=== PATIENT | male | born 1990 | race African-American/Black ===

== ENCOUNTER 2016-11-20 01:17 | Emergency (ER) | payer OTHER ==
[~2016-11-20 01:17] MED LIST: CELE20TA PO; HYDR25TAB PO; LAMI250T3 PO; MOBI15TA PO; PERC5TAB6 PO; PRIL20CA PO; VALA1TAB PO; VANI1CRE5 TOP
[2016-11-20] MEDS ORDERED: ONDANSETRON 4 MG ORAL DISINTEGRATING TAB (S0181) As Ordered ONE (02:02)
--- NOTE | 2016-11-20 02:23 | EDDOCDS ---
Physician Documentation [facility] Name: Erica Walsh Age: 26 yrs Sex: Male : 1990 Arrival Date: 11/20/2016 Time: 01:17 Bed I2 / M2 Private MD: Disposition: 11/20/16 02:15 Discharged to Home/Self Care. Impression: Vomiting. - Condition is Stable. - Discharge Instructions: Clear Liquid Diet, Nausea and Vomiting. - Prescriptions for ZOFRAN ODT 4 mg Oral - dissolve 1 tablet by ORAL route 4 times per day As needed do not chew, do not swallow whole; 20 tablet. - Medication Reconciliation, Local Pharmacy Hours form. - Follow up: Private Physician; When: Call to arrange an appointment; Reason: Recheck today's complaints, Continuance of care. - Problem is new. - Symptoms have improved. Historical: - Allergies: No known drug Allergies; - Home Meds: 1. valacyclovir 1 gram Oral tab 1 tab 2 times per day - PMHx: back pain; GERD; Hypertension; Herpes; - PSHx: Tonsillectomy; - Social history: Smoking status: Patient uses tobacco products, light tobacco smoker. No barriers to communication noted, The patient speaks fluent [place], Speaks appropriately for age. - Family history: Not pertinent. - : The pt / caregiver states he / she is not on anticoagulants. Home medication list is obtained from the patient. - Exposure Risk Screening:: None identified. Vital Signs: 11/20 01:41 BP 137 / 81; Pulse 81; Resp 18; Temp 98.5(TE); Pulse Ox 98% on R/A; Weight 99.79 kg / kmg1 220 lbs (R); Height 6 ft. 2 in. (187.96 cm) (R); Pain 0/10; 01:41 Body Mass Index 28.25 (99.79 kg, 187.96 cm) kmg1 MDM: 01:44 Ondansetron ODT Oral Disintegrating Tablet 4 mg PO once ordered. mo1 Administered Medications: 02:04 Drug: Ondansetron ODT 4 mg [ondansetron 4 mg disintegrating tablet (1 tabs)] Route: PO; [place] Signatures: Dannielle Gaytan RN RN [facility] Rigoberto Cook PA PA mo1 Romero,Chandler,RN RN jmb JOHND
--- NOTE | 2016-11-20 02:23 | EDDOCDS ---
Nurse's Notes [facility] Name: Erica Walsh Age: 26 yrs Sex: Male : 1990 Arrival Date: 11/20/2016 Time: 01:17 Bed I2 / M2 Private MD: Diagnosis: Vomiting Presentation: 11/20 01:38 Presenting complaint: Patient states: Vomiting since 1999. Suicide/Homicide risk kmg1 assessment- the patient denies having any suicidal and/or homicidal ideations and does not present with any other emotional, behavioral or mental health complaints. Status: Patient is not a mechanical service specialist or dependent. Transition of care: patient was not received from another setting of care. 01:38 Acuity: ROCAEL Level 4 km 01:38 Method Of Arrival: Walkin/Carried/Asstd [facility] [place] 02:21 Adult Sepsis Screening: The patient does not have new or worsening altered mentation. jmb Patient's respiratory rate is less than 22. Systolic blood pressure is greater than 100. Patient has a qSOFA score of 0- Negative Sepsis Screen. Triage Assessment: 01:41 General: Appears ill, Behavior is appropriate for age, cooperative, pleasant. Pain: kmg1 Denies pain. HIV screening NA for this visit Offered previously. GI: Reports nausea, vomiting. Historical: - Allergies: No known drug Allergies; - Home Meds: 1. valacyclovir 1 gram Oral tab 1 tab 2 times per day - PMHx: back pain; GERD; Hypertension; Herpes; - PSHx: Tonsillectomy; - Social history: Smoking status: Patient uses tobacco products, light tobacco smoker. No barriers to communication noted, The patient speaks fluent [place]e, Speaks appropriately for age. - Family history: Not pertinent. - : The pt / caregiver states he / she is not on anticoagulants. Home medication list is obtained from the patient. - Exposure Risk Screening:: None identified. Screenin:04 Screening information is obtained from the patient. Fall risk: No risks identified. jmb Assistance ADL's: requires no assistance with activities of daily living. Abuse/DV Screen: The patient / caregiver reports he/she is: not in a situation that causes fear, pain or injury. Nutritional screening: No deficits noted. home support is adequate. 02:19 Advance Directives: Currently, there is no health care proxy. There is no active DNR jmb order. There is no living will. There is no Power of Oxyacetylene Welder. Assessment: 02:04 General: Appears in no apparent distress, Behavior is appropriate for age. jmb Neurological: Level of Consciousness is awake, alert, obeys commands, Oriented to person, place, time, Speech is normal, Facial symmetry appears normal, Facial symmetry: tongue is midline. Cardiovascular: Capillary refill < 3 seconds Heart tones present Pulses are all present. Rhythm is regular. Respiratory: Airway is patent Respiratory effort is even, unlabored, Respiratory pattern is regular, symmetrical, Breath sounds are clear bilaterally. GI: Abdomen is non- distended Bowel sounds present X 4 quads. Abd is soft X 4 quads Reports nausea, vomiting. Derm: Skin is normal. Musculoskeletal: Range of motion intact in all extremities. 02:19 General: Patient instructed on discharge instructions. Patient asked if there were any jmb questions regarding discharge, patient stated no. Patient signed discharge instructions. Patient discharged in stable condition. . Vital Signs: 01:41 BP 137 / 81; Pulse 81; Resp 18; Temp 98.5(TE); Pulse Ox 98% on R/A; Weight 99.79 kg [facility] (R); Height 6 ft. 2 in. (187.96 cm) (R); Pain 0/10; 01:41 Body Mass Index 28.25 (99.79 kg, 187.96 cm) [facility] Vitals: 01:41 Log In Time: November 20, 2016 at 01:20. [facility] ED Course: 01:19 Patient visited by Zainab Parada Reg. hs2 01:19 Patient moved to Waiting hs2 01:39 Triage Initiated [facility] 01:43 Patient moved to I2 / M2 [facility] 02:02 Rigoberto Cook PA is PHCP. mo1 02:02 Berny Henry DO is Attending Physician. mo1 02:04 The patient / caregiver is instructed regarding the plan of care and ED course. jmb 02:05 Patient visited by Chandler Romero RN. jmb 02:14 Patient visited by Rigoberto Cook PA. mo1 02:19 No IV's were initiated during this patient's visit. No procedures done that require jmb assistance. Administered Medications: 02:04 Drug: Ondansetron ODT 4 mg [ondansetron 4 mg disintegrating tablet (1 tabs)] Route: PO; jmb Order Results: There are currently no results for this order. Outcome: 02:15 Discharge ordered by Provider. mo1 02:19 Discharge Assessment: Patient awake, alert and oriented x 3. No cognitive and/or jmb functional deficits noted. Patient verbalized understanding of disposition instructions. Patient awake and alert. obeys commands, Oriented to person, place and time. Patient verbalized understanding of disposition instructions. Patient has no functional deficits. patient administered narcotics - no. The following High Risk Discharge criteria are identified: None. Discharged to home ambulatory, with friend. Condition: stable. Discharge instructions given to patient, Instructed on discharge instructions, follow up and referral plans. Demonstrated understanding of instructions, Pt was receptive of discharge instructions/ teaching. No special radiology studies were completed. Property sent home with patient. 02:22 Patient left the ED. [place] Signatures: Dannielle Gaytan RN RN kmg1 Rigoberto Cook PA PA mo1 Chandler Romero RN RN jmb Zainab Parada, Reg Reg hs2 MTDD
[2016-11-20] MEDS ORDERED: IBUPROFEN 100 MG/5 ML SUSP UDC As Ordered ONE (02:49)
[2016-11-20] MEDS ORDERED: diphenhydrAMINE 12.5MG/5ML ELIXIR UDC As Ordered ONE (02:49)
--- NOTE | 2016-11-22 03:23 | EDDOCDS ---
Physician Documentation [facility] Name: Erica Walsh Age: 26 yrs Sex: Male : 1990 Arrival Date: 11/20/2016 Time: 01:17 Bed I2 / M2 Private MD: Disposition: 11/20/16 02:15 Discharged to Home/Self Care. Impression: Vomiting. - Condition is Stable. - Discharge Instructions: Clear Liquid Diet, Nausea and Vomiting. - Prescriptions for ZOFRAN ODT 4 mg Oral - dissolve 1 tablet by ORAL route 4 times per day As needed do not chew, do not swallow whole; 20 tablet. - Medication Reconciliation, Local Pharmacy Hours form. - Follow up: Private Physician; When: Call to arrange an appointment; Reason: Recheck today's complaints, Continuance of care. - Problem is new. - Symptoms have improved. Historical: - Allergies: No known drug Allergies; - Home Meds: 1. valacyclovir 1 gram Oral tab 1 tab 2 times per day - PMHx: back pain; GERD; Hypertension; Herpes; - PSHx: Tonsillectomy; - Social history: Smoking status: Patient uses tobacco products, light tobacco smoker. No barriers to communication noted, The patient speaks fluent [place], Speaks appropriately for age. - Family history: Not pertinent. - : The pt / caregiver states he / she is not on anticoagulants. Home medication list is obtained from the patient. - Exposure Risk Screening:: None identified. Vital Signs: 11/20 01:41 BP 137 / 81; Pulse 81; Resp 18; Temp 98.5(TE); Pulse Ox 98% on R/A; Weight 99.79 kg / kmg1 220 lbs (R); Height 6 ft. 2 in. (187.96 cm) (R); Pain 0/10; 01:41 Body Mass Index 28.25 (99.79 kg, 187.96 cm) kmg1 MDM: 01:44 Ondansetron ODT Oral Disintegrating Tablet 4 mg PO once ordered. mo1 02:28 [facility] Payment Agreement was scanned into [employer] and attached to record. lja 02:28 Financial registration complete. lja 04:37 T-Sheet-- Draft Copy was scanned into [employer] and attached to record. hs2 Administered Medications: 02:04 Drug: Ondansetron ODT 4 mg [ondansetron 4 mg disintegrating tablet (1 tabs)] Route: PO; [place] Signatures: Dannielle Gaytan RN RN kmg1 Rigoberto Cook PA PA mo1 Chandler Romero RN RN jmb Arel, Zainab Trevino, Reg Reg hs2 The chart was reviewed and I authenticate all verbal orders and agree with the evaluation and treatment provided.Attachments: 02:28 [facility] Payment Agreement sheela 04:37 T-Sheet-- Draft Copy hs2 Chart Complete MTDD
--- NOTE | 2016-11-22 03:23 | EDDOCDS ---
Physician Documentation [facility] Name: Erica Walsh Age: 26 yrs Sex: Male : 1990 Arrival Date: 11/20/2016 Time: 01:17 Bed I2 / M2 Private MD: Disposition: 11/20/16 02:15 Discharged to Home/Self Care. Impression: Vomiting. - Condition is Stable. - Discharge Instructions: Clear Liquid Diet, Nausea and Vomiting. - Prescriptions for ZOFRAN ODT 4 mg Oral - dissolve 1 tablet by ORAL route 4 times per day As needed do not chew, do not swallow whole; 20 tablet. - Medication Reconciliation, Local Pharmacy Hours form. - Follow up: Private Physician; When: Call to arrange an appointment; Reason: Recheck today's complaints, Continuance of care. - Problem is new. - Symptoms have improved. Historical: - Allergies: No known drug Allergies; - Home Meds: 1. valacyclovir 1 gram Oral tab 1 tab 2 times per day - PMHx: back pain; GERD; Hypertension; Herpes; - PSHx: Tonsillectomy; - Social history: Smoking status: Patient uses tobacco products, light tobacco smoker. No barriers to communication noted, The patient speaks fluent [place], Speaks appropriately for age. - Family history: Not pertinent. - : The pt / caregiver states he / she is not on anticoagulants. Home medication list is obtained from the patient. - Exposure Risk Screening:: None identified. Vital Signs: 11/20 01:41 BP 137 / 81; Pulse 81; Resp 18; Temp 98.5(TE); Pulse Ox 98% on R/A; Weight 99.79 kg / kmg1 220 lbs (R); Height 6 ft. 2 in. (187.96 cm) (R); Pain 0/10; 01:41 Body Mass Index 28.25 (99.79 kg, 187.96 cm) kmg1 MDM: 01:44 Ondansetron ODT Oral Disintegrating Tablet 4 mg PO once ordered. mo1 02:28 [facility] Payment Agreement was scanned into [employer] and attached to record. lja 02:28 Financial registration complete. lja 04:37 T-Sheet-- Draft Copy was scanned into [employer] and attached to record. hs2 Administered Medications: 02:04 Drug: Ondansetron ODT 4 mg [ondansetron 4 mg disintegrating tablet (1 tabs)] Route: PO; [place] Signatures: Dannielle Gaytan RN RN kmg1 Rigoberto Cook PA PA mo1 Chandler Romero RN RN jmb Arel, Zainab Trevino, Reg Reg hs2 The chart was reviewed and I authenticate all verbal orders and agree with the evaluation and treatment provided.Attachments: 02:28 [facility] Payment Agreement sheela 04:37 T-Sheet-- Draft Copy hs2 Chart Complete MTDD
--- NOTE | 2016-11-22 03:23 | EDDOCDS ---
Nurse's Notes [facility] Name: Erica Walsh Age: 26 yrs Sex: Male : 1990 Arrival Date: 11/20/2016 Time: 01:17 Bed I2 / M2 Private MD: Diagnosis: Vomiting Presentation: 11/20 01:38 Presenting complaint: Patient states: Vomiting since 1999. Suicide/Homicide risk kmg1 assessment- the patient denies having any suicidal and/or homicidal ideations and does not present with any other emotional, behavioral or mental health complaints. Status: Patient is not a service vehicle operator or dependent. Transition of care: patient was not received from another setting of care. 01:38 Acuity: ROCAEL Level 4 km 01:38 Method Of Arrival: [place] [facility] Adult Sepsis Screening: The patient does not have new or worsening altered mentation. jmb Patient's respiratory rate is less than 22. Systolic blood pressure is greater than 100. Patient has a qSOFA score of 0- Negative Sepsis Screen. Triage Assessment: 01:41 General: Appears ill, Behavior is appropriate for age, cooperative, pleasant. Pain: kmg1 Denies pain. HIV screening NA for this visit Offered previously. GI: Reports nausea, vomiting. Historical: - Allergies: No known drug Allergies; - Home Meds: 1. valacyclovir 1 gram Oral tab 1 tab 2 times per day - PMHx: back pain; GERD; Hypertension; Herpes; - PSHx: Tonsillectomy; - Social history: Smoking status: Patient uses tobacco products, light tobacco smoker. No barriers to communication noted, The patient speaks fluent [place], Speaks appropriately for age. - Family history: Not pertinent. - : The pt / caregiver states he / she is not on anticoagulants. Home medication list is obtained from the patient. - Exposure Risk Screening:: None identified. Screenin:04 Screening information is obtained from the patient. Fall risk: No risks identified. jmb Assistance ADL's: requires no assistance with activities of daily living. Abuse/DV Screen: The patient / caregiver reports he/she is: not in a situation that causes fear, pain or injury. Nutritional screening: No deficits noted. home support is adequate. 02:19 Advance Directives: Currently, there is no health care proxy. There is no active DNR jmb order. There is no living will. There is no Power of Public Health Representative. Assessment: 02:04 General: Appears in no apparent distress, Behavior is appropriate for age. jmb Neurological: Level of Consciousness is awake, alert, obeys commands, Oriented to person, place, time, Speech is normal, Facial symmetry appears normal, Facial symmetry: tongue is midline. Cardiovascular: Capillary refill < 3 seconds Heart tones present Pulses are all present. Rhythm is regular. Respiratory: Airway is patent Respiratory effort is even, unlabored, Respiratory pattern is regular, symmetrical, Breath sounds are clear bilaterally. GI: Abdomen is non- distended Bowel sounds present X 4 quads. Abd is soft X 4 quads Reports nausea, vomiting. Derm: Skin is normal. Musculoskeletal: Range of motion intact in all extremities. 02:19 General: Patient instructed on discharge instructions. Patient asked if there were any jmb questions regarding discharge, patient stated no. Patient signed discharge instructions. Patient discharged in stable condition. . Vital Signs: 01:41 BP 137 / 81; Pulse 81; Resp 18; Temp 98.5(TE); Pulse Ox 98% on R/A; Weight 99.79 kg [facility] (R); Height 6 ft. 2 in. (187.96 cm) (R); Pain 0/10; 01:41 Body Mass Index 28.25 (99.79 kg, 187.96 cm) [facility] Vitals: 01:41 Log In Time: November 20, 2016 at 01:20. [facility] [place] Course: 01:19 Patient visited by Zainab Parada Reg. hs2 01:19 Patient moved to Waiting hs2 01:39 Triage Initiated [facility] 01:43 Patient moved to I2 / M2 [facility] 02:02 Rigoberto Cook PA is PHCP. mo1 02:02 Berny Henry DO is Attending Physician. mo1 02:04 The patient / caregiver is instructed regarding the plan of care and ED course. jmb 02:05 Patient visited by Chandler Romero RN. jmb 02:14 Patient visited by Rigoberto Cook PA. mo1 02:19 No IV's were initiated during this patient's visit. No procedures done that require jmb assistance. 02:28 [facility] [place] Agreement was scanned into [employer] and attached to record. lja 04:37 T-Sheet-- Draft Copy was scanned into [employer] and attached to record. hs2 Administered Medications: 02:04 Drug: Ondansetron ODT 4 mg [ondansetron 4 mg disintegrating tablet (1 tabs)] Route: PO; jmb Order Results: There are currently no results for this order. Outcome: 02:15 Discharge ordered by Provider. mo1 02:19 Discharge Assessment: Patient awake, alert and oriented x 3. No cognitive and/or jmb functional deficits noted. Patient verbalized understanding of disposition instructions. Patient awake and alert. obeys commands, Oriented to person, place and time. Patient verbalized understanding of disposition instructions. Patient has no functional deficits. patient administered narcotics - no. The following High Risk Discharge criteria are identified: None. Discharged to home ambulatory, with friend. Condition: stable. Discharge instructions given to patient, Instructed on discharge instructions, follow up and referral plans. Demonstrated understanding of instructions, Pt was receptive of discharge instructions/ teaching. No special radiology studies were completed. Property sent home with patient. 02:22 Patient left the ED. [place] Signatures: Dannielle Gaytan, RN RN kmg1 Rigoberto Cook PA PA mo1 Chandler Romero RN RN [place] [employer], Zainab Trevino, Reg Reg hs2 Chart Complete MTDD
== END 2016-11-20 02:22 | disposition home or self-care (01) ==
LOC: M ED 01:17
DX: R11.2 Nausea with vomiting, unspecified (principal); K21.9 Gastro-esophageal reflux disease without esophagitis; M54.9 Dorsalgia, unspecified; I10 Essential (primary) hypertension; B00.9 Herpesviral infection, unspecified; Z90.89 Acquired absence of other organs; Z72.0 Tobacco use; Z79.899 Other long term (current) drug therapy

== ENCOUNTER → 2017-07-04 | Outpatient (REF) | payer OTHER ==
[~2017-07-04] MED LIST changes: +LAMI1TAB6 PO; -LAMI250T3 PO; +PERC5TAB12 PO; -PERC5TAB6 PO; -PRIL20CA PO; +PRIL20CA9 PO; -VALA1TAB PO; +VALA1TAB2 PO
[2017-07-04 12:56] LABS: #IMMOTILE SPERM COUNTED 18; #MOTILE SPERM COUNTED 9; % MOTILITY 33 (> 40%); TOTAL # SPERM COUNTED 27 M/ml
== END ==
LOC: M LAB REF 12:28
PROVIDERS: ATTEND Student in an Organized Health Care Education/Training Program
DX: N46.8 Other male infertility (principal)

== ENCOUNTER 2017-07-19 18:44 | Emergency (ER) | payer OTHER ==
[~2017-07-19] VITALS: Ht 188 cm; Wt 90.2 kg
[2017-07-19] MEDS ORDERED: traMADol 50 MG TAB (BULK 4 TAB ED) PO ONE (20:45)
[2017-07-19 20:55] VITALS: BP 126/73
--- NOTE | 2017-07-27 11:14 | REP ---
Clinical: Trauma. Technique: AP, lateral, bilateral oblique views of the right ankle. Findings: Mild swelling. No acute fracture or dislocation. Ankle mortise appears intact. Impression: Mild swelling without obvious acute fracture dislocation. If the patient remains symptomatic consider repeat evaluation in 5-7 days. Signed by Oh Maier MD 07/19/2017 08:21 P
== END 2017-07-19 21:40 | disposition home or self-care (01) ==
LOC: M ED 18:44
DX: S93.401A Sprain of unspecified ligament of right ankle, initial encounter (principal); S06.0X0A Concussion without loss of consciousness, initial encounter; W10.9XXA Fall (on) (from) unspecified stairs and steps, initial encounter; Y92.009 Unspecified place in unspecified non-institutional (private) residence as the place of occurrence of the external cause; Y93.9 Activity, unspecified; Y99.9 Unspecified external cause status